=== PATIENT | female | born 2000 | race Caucasian/White ===

== ENCOUNTER 2020-01-19 15:43 | Emergency (ER) | payer OTHER ==
--- NOTE | 2020-01-19 15:50 | EDM.PDOC ---
ED HPI GENERAL MEDICAL PROBLEM - General Chief Complaint: Lower Extremity Injury/Pain Stated Complaint: right ankle pain Time Seen by Provider: 01/19/20 15:46 Source of Information: Reports: Patient, Family (Mother), Old Records ([facility] chart/EMR) History Limitations: Reports: No Limitations - History of Present Illness INITIAL COMMENTS - FREE TEXT/NARRATIVE: The patient was brought to the emergency room via private automobile by a friend secondary to 5/10 right ankle pain after the patient had a minor fall when she tried to jump off of a golf cart [place]. No treatment or medications prior to arrival with the patient not having a previous fracture in this ankle in the past, although she has had multiple minor sprains in this ankle. She denies any head injury, loss of consciousness, change in mental status, neck/back pain, paresthesias, or other complaints or injuries. No recent history of abdominal pain, heartburn, nausea, diarrhea, melena, gross hematochezia, or any food intolerance, including fatty foods, etc.. The patient also denies any recent fever, cough, wheezing, dyspnea, etc.. Onset: Today, Sudden Onset Date: 01/19/20 Onset Time: 15:00 Duration: Constant Location: Reports: Lower Extremity, Right. 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 ED EXAM, GENERAL - Physical Exam Exam: See Below Exam Limited By: No Limitations General Appearance: Alert, WD/WN, No Apparent Distress Head: Atraumatic, Normocephalic Neck: Normal Inspection, Supple, Non-Tender, Full Range of Motion. No: Lymphadenopathy (L), Lymphadenopathy (R), Thyromegaly Respiratory/Chest: No Respiratory Distress, Lungs Clear, Normal Breath Sounds, No Accessory Muscle Use, Chest Non-Tender. No: Pleural Rub, Retractions Cardiovascular: Normal Peripheral Pulses, Regular Rate, Rhythm, No Edema, No Gallop, No JVD, No Murmur, No Rub. No: Tachycardia (Resolved at time of exam), Gallop/S3, Gallop/S4, Friction Rub Peripheral Pulses: 2+: Radial (L), Radial (R), Dorsalis Pedis (L), Dorsalis Pedis (R) GI/Abdominal: Normal Bowel Sounds, Soft, Non-Tender, No Organomegaly, No Distention, No Abnormal Bruit, No Mass, Pelvis Stable, Other (Obese). No: Guarding (Female) Exam: Deferred Rectal (Female) Exam: Deferred Back Exam: Normal Inspection, Full Range of Motion. No: CVA Tenderness (L), CVA Tenderness (R), Muscle Spasm Extremities: No Pedal Edema, Normal Capillary Refill, Joint Swelling (Moderate right lateral malleolus), Leg Pain (Mild to moderate with movement and palpation), Limited Range of Motion (Right ankle secondary to injury), Other (No crepitation or deformity with no joint instability by limited exam). No: Nita's Sign, Increased Warmth, Redness Neurological: Alert, Oriented, CN II-XII Intact, Normal Cognition, Normal Gait, Normal Reflexes, No Motor/Sensory Deficits Psychiatric: Normal Affect, Normal Mood Skin Exam: Warm, Dry, Intact, Normal Color, No Rash, Stud(s) (Multiple including the auricles), Tattoo(s) (Total). No: Diaphoretic, Wound/Incision Lymphatic: No Adenopathy ED TRAUMA EXTREMITY PROCEDURES - Splinting Right Lower Extremity Splint Site: Right leg Pre-Procedure NV Status: Normal Post-Procedure NV Status: Normal Splint Material: Boot Orthotic (Cam boot with previous six-inch Gautam wrap applied) Splint Design: Other (As above) Applied & Form Fitted By: Nurse Provider Post-Splint Application NV Check: NV Status Normal, Good Position Complications: No Course - Vital Signs Last Recorded V/S: Last Vital Signs Temp 36.3 C 01/19/20 15:44 Pulse 102 H 01/19/20 15:44 Resp 20 01/19/20 15:44 BP 131/78 01/19/20 15:44 Pulse Ox 98 01/19/20 15:44 Vital Signs - 24 hr 01/19/20 15:44 Temperature [ 36.3 C Temporal] Pulse, 102 H Peripheral [ Right Pulse Oximetry] Respiratory 20 Rate Blood Pressure 131/78 [Left Upper Arm ] O2 Sat by Pulse 98 Oximetry - Orders/Labs/Meds Orders: Active Orders 24 hr Category Date Time Status Ankle Min 3V Rt [CR] Stat Exams 01/19/20 15:51 Taken Durable Medical Equipment for Discharge [DME for Ot 01/19/20 16:10 Ordered Discharge] [COMM] Routine Durable Medical Equipment for Discharge [DME for Ot 01/19/20 16:11 Ordered Discharge] [COMM] Routine Durable Medical Equipment for Discharge [DME for Ot 01/19/20 16:11 Ordered Discharge] [COMM] Routine Obtain Past Medical Record [OM.PC] Routine Oth 01/19/20 15:50 Active Labs: None Meds: None - Radiology Interpretation Free Text/Narrative:: X-rays of the right ankle, complete, shows evidence of a non-angulated nondisplaced distal fibular fracture with questionable possible previous medial malleolar avulsion fracture. The mortise is intact. Departure - Departure Time of Disposition: 16:50 Disposition: Home, Self-Care 01 Condition: Good Clinical Impression: Closed fibular fracture Qualifiers: Encounter type: initial encounter Fibula location: distal Fracture morphology: torus Laterality: right Qualified Code(s): S82.821A - Torus fracture of lower end of right fibula, initial encounter for closed fracture Oligomenorrhea Qualifiers: Oligomenorrhea type: unspecified type Qualified Code(s): N91.5 - Oligomenorrhea, unspecified - Discharge Information *PRESCRIPTION DRUG MONITORING PROGRAM REVIEWED*: Not Applicable *COPY OF PRESCRIPTION DRUG MONITORING REPORT IN PATIENT TOBY: Not Applicable Instructions: Crutch Use, Adult, [id number], Nondisplaced Fibular Ankle Fracture Treated With Immobilization, Adult, Cast or Splint Care, Adult Forms: ED Department Discharge, ED Return to Work/School Form Additional Instructions: 1. Followup with your regular provider in 7 days for reevaluation, repeat x- rays of the right ankle, and probable cast placement as directed. Bring these discharge instructions with you to that visit. 2. Ice packs and leg elevation as discussed. 3. Work excuse- See Form 4. Tylenol 650 mg by mouth every 4 hours and/or OTC ibuprofen 2-3 tabs by mouth every 6 hours with food as directed./needed. You may stagger these medications for 48-72 hours only, which essentially means that you are receiving a pain medication about every 2 hours. 5. Immediately after this visit verify that your cellular telephone's voicemail has been activated and is empty. Also verify that your home telephone's answering machine is operating properly and has space to receive messages. Note that it is sometimes necessary for us to be able to contact you at a later date to discuss your medical care. 6. Please remember that we are ALWAYS here for you and want to answer any questions you may have. Feel free to call the hospital any time and we call you back INDERJIT. 7. Limited activity/weightbearing on the right foot/ankle as discussed with cam boot to be worn at all times with exception of ice packs, bathing, etc. Use your crutches at all times when ambulating as discussed. Sepsis Event Note (ED) - Focused Exam Vital Signs: Vital Signs Temp Pulse Resp BP Pulse Ox 01/19/20 15:44 36.3 C 102 H 20 131/78 98 - Problem List & Annotations (1) Closed fibular fracture SNOMED Code(s): 610449157 Code(s): S82.409A - UNSP FRACTURE OF SHAFT OF UNSP FIBULA, INIT FOR CLOS FX Status: Acute Priority: High Onset Date: 01/19/20 Annotation/Comment:: Cam boot, etc. as above. Activity restrictions, etc. were discussed. Symptomatic relief as per discharge instruction with close follow-up by her regular provider. Work excuse provided. Qualifiers: Encounter type: initial encounter Fibula location: distal Fracture morphology: torus Laterality: right Qualified Code(s): S82.821A - Torus fracture of lower end of right fibula, initial encounter for closed fracture (2) Oligomenorrhea SNOMED Code(s): 42729635 Code(s): N91.5 - OLIGOMENORRHEA, UNSPECIFIED Status: Chronic Priority: Medium Annotation/Comment:: Patient was encouraged to discuss this further with her regular providers with further workup per their discretion, Qualifiers: Oligomenorrhea type: unspecified type Qualified Code(s): N91.5 - Oligomenorrhea, unspecified - Problem List Review Problem List Initiated/Reviewed/Updated: Yes - My Orders Last 24 Hours: My Active Orders 01/19/20 15:50 Obtain Past Medical Record [OM.PC] Routine 01/19/20 15:51 Ankle Min 3V Rt [CR] Stat 01/19/20 16:10 Durable Medical Equipment for Discharge [DME for Discharge] [COMM] Routine 01/19/20 16:11 Durable Medical Equipment for Discharge [DME for Discharge] [COMM] Routine Durable Medical Equipment for Discharge [DME for Discharge] [COMM] Routine - Assessment/Plan Last 24 Hours: My Active Orders 01/19/20 15:50 Obtain Past Medical Record [OM.PC] Routine 01/19/20 15:51 Ankle Min 3V Rt [CR] Stat 01/19/20 16:10 Durable Medical Equipment for Discharge [DME for Discharge] [COMM] Routine 01/19/20 16:11 Durable Medical Equipment for Discharge [DME for Discharge] [COMM] Routine Durable Medical Equipment for Discharge [DME for Discharge] [COMM] Routine Assessment:: As above Plan: As above. Extensive precautions were given to the patient and her mother, who are in agreement with the treatment plan. See Patient Instructions for further treatment and plan.
== END 2020-01-19 16:51 | disposition home or self-care (01) ==
LOC: LL.ED 15:43
DX: S82.821A Torus fracture of lower end of right fibula, initial encounter for closed fracture (principal); N91.5 Oligomenorrhea, unspecified; E66.9 Obesity, unspecified; Z68.33 Body mass index [BMI] 33.0-33.9, adult; Z79.899 Other long term (current) drug therapy; W19.XXXA Unspecified fall, initial encounter; Y92.39 Other specified sports and athletic area as the place of occurrence of the external cause
CPT/HCPCS: 73610-RT; 99283-25